=== PATIENT | male | born 1990 | race Caucasian/White ===

== ENCOUNTER 2024-01-08 15:19 | Emergency (ER) | payer BC ==
[~2024-01-08] VITALS: Ht 177.8 cm; Wt 87.5 kg
[2024-01-08] MEDS ORDERED: IBUP-1957 PO (17:17)
[2024-01-08] MEDS ORDERED: IBUPROFEN 400 MG TABLET ONE (17:34)
[2024-01-08] MEDS: IBUPROFEN 400 MG TABLET PO ONE (17:35)
[2024-01-08 17:45] VITALS: BP 123/77; TEMP 98.2; O2SAT 99
== END 2024-01-08 17:45 | disposition home or self-care (01) ==
LOC: ER 15:25
DX: S93.491A Sprain of other ligament of right ankle, initial encounter (principal); W22.8XXA Striking against or struck by other objects, initial encounter; Y93.89 Activity, other specified; Y92.89 Other specified places as the place of occurrence of the external cause; Y99.8 Other external cause status
CPT/HCPCS: 73610-TC